=== PATIENT | female | born 1995 | race Caucasian/White ===

== ENCOUNTER 2017-09-23 13:50 | Day surgery (SDC) | payer BC ==
[~2017-09-23] VITALS: Ht 188 cm; Wt 163.3 kg
--- OUTSIDE RECORDS SUMMARY | 2017-09-23 13:56 | XMS REPORT | Clinical Summary ---
Author Author [facility] Organization [facility] Address Unknown Phone Unavailable Care Team Providers Care Victim Witness Administrator Name Role Phone PCP Unavailable Source Comments Some departments are not documenting in the electronic medical record. If you do not see the information that you expected, contact Release of Information in the Health Information Management department at [phone] for further assistance in locating additional records.[facility] Allergies No Known Allergies Current Medications Prescription Sig. Disp. Refills Start End Date Status Date atenolol (TENORMIN) 25 mg Take 25 mg by mouth Active tablet daily. Active Problems Not on file Family History Medical History Relation Name Comments Heart defect Paternal Grandfather Sudden Cardiac Paternal Grandfather Heart defect Paternal A-Fib Grandmother Relation Name Status Comments Paternal Grandfather Paternal Grandmother Social History Tobacco Use Types Packs/Day Years Used Date Never Smoker Sex Assigned at Date Recorded Not on file Last Filed Vital Signs Vital Sign Reading Time Taken Blood Pressure 143/73 05/13/2013 8:39 AM CDT Pulse 75 05/13/2013 8:31 AM CDT Temperature - - Respiratory Rate 24 05/13/2013 8:31 AM CDT Oxygen Saturation 99% 05/13/2013 8:31 AM CDT Inhaled Oxygen - - Concentration Weight 133.3 kg (293 lb 14 oz) 05/13/2013 8:31 AM CDT Height 183.5 cm (6' 0.24") 05/13/2013 8:31 AM CDT Body Mass Index 39.59 05/13/2013 8:31 AM CDT Plan of Treatment Health Maintenance Due Date Last Done Comments PHYSICAL (COMPREHENSIVE) 2003 EXAM HPV VACCINES (1 of 3 - 2007 Female 3 Dose Series) PERTUSSIS VACCINE 2007 TETANUS VACCINE 2013 INFLUENZA VACCINE 05/20/2017 CERVICAL CANCER SCREENING 2017 Results Not on filefrom Last 3 Months
[2017-09-23 14:30] VITALS: BP 144/92
[2017-09-23] MEDS: LACTATED RINGERS 1,000 ML IV PRN ×2 (14:30→15:51)
[2017-09-23] MEDS ORDERED: ONDANSETRON 4 MG/2 ML (SDV) Z0FRAN ONE (14:36)
[2017-09-23] MEDS ORDERED: LIDOCAINE 1% INJ 20 ML (XYLOCAINE) VIAL ONE (14:37)
[2017-09-23] MEDS ORDERED: BUPIVACAINE 0.5% 30 ML (SENSORCAINE) VIAL ONE (14:37)
[2017-09-23] MEDS ORDERED: BIRTH CONTROL PO ×2 (14:51)
[2017-09-23] MEDS ORDERED: ROCURONIUM 50 MG/5 ML (ZEMURON) VIAL IV ONE ×2 (14:52→15:43)
[2017-09-23] MEDS ORDERED: proPOfol 200 MG/20 ML (DIPRIVAN) VIAL IV ONE (14:52)
[2017-09-23] MEDS ORDERED: MIDAZOLAM 2 MG/2 ML (VERSED) VIAL ONE (14:52)
[2017-09-23] MEDS ORDERED: fentaNYL INJECTION 250 MCG/5 ML AMP ONE (14:53)
[2017-09-23] MEDS ORDERED: ONDANSETRON 4 MG/2 ML (SDV) Z0FRAN IV ONE (15:00)
[2017-09-23] MEDS ORDERED: ceFAZolin 2 GM/NS 50 ML IV ONE (15:00)
[2017-09-23] MEDS ORDERED: DEXAMETHASONE 10 MG/ML (DECADRON) 1 ML VIAL ONE (16:05)
[2017-09-23] MEDS ORDERED: KETOROLAC 30 MG/ML VIAL ONE (16:05)
[2017-09-23] MEDS ORDERED: morphine INJ 10 MG/ML 1ML (SYR OR VIAL) ONE (16:11)
[2017-09-23] MEDS ORDERED: NEOSTIGMINE (BLOXIVERZ ) 1 MG/1ML 10 ML VIAL ONE (16:55)
[2017-09-23] MEDS ORDERED: GLYCOPYRROLATE 0.2 MG/ML (ROBINUL) 2 ML VIAL ONE (16:55)
[2017-09-23] MEDS ORDERED: SEVOFLURANE (ULTANE) 15 ML INHAL SOLN ONE (16:55)
--- NOTE | 2017-09-23 17:01 | Progress Note-Post Operative ---
Post-Operative Progess Note Surgeon (s)/Program Eligibility Specialist (s) Surgeon LIZZIE ANTONIO DO Program Eligibility Specialist: Dr. Dubose Pre-Operative Diagnosis SYMPTOMATIC CHOLETHIASIS Post-Operative Diagnosis cholelithiasis, cholecystitis, distal cbd obstruction Procedure & Operative Findings Date of Procedure 09/23/17 Procedure Performed/Findings lap seb c ioc Anesthesia Type general Estimated Blood Loss Estimated blood loss (mL): minimal Specimens/Packing Specimens Removed gallbladder LIZZIE ANTONIO DO Sep 23, 2017 17:01
[2017-09-23] MEDS ORDERED: HYDR-3812 PO ×2 (17:02)
--- NOTE | 2017-09-23 17:07 | Discharge Inst-Simple/Standard ---
Discharge Inst-Standard Discharge Medications New, Converted or Re-Newed RX: RX on Chart Patient Instructions/Follow Up Plan of Care/Instructions/FU: [address] Mckenzie NPO until allowed diet after scope procedure. Activity as Tolerated: No Discharge Diet: Other Diet (nothing to eat or drink until after scope perfored (ERCP)) Other Inst to Patient Follow up Appt: Make appointment for 2 weeks. Instructions: No lifting greater than 10 pounds. No strenuous activity. May shower in 24 hours, no tub bath or soaking. Use incentive spirometer at home as directed. No Smoking Skin/Wound Care: May remove bandages in 24 hours. You need to leave the white strips over incision on they will fall off on their own. Symptoms to Report: Appetite Changes, Extremity Discoloration, Numbness/Tingling, Swelling Increased , Bleeding Excessive, Eyesight Changes, Pain Increased, Urine Color Change, Constipation(Persistent), Fever over 101 degree F, Pain/Pressure in chest, Urinating Difficulty, Cough Up/Vomit Blood, Heart Beat Irreg/Pounding, Pain/ Pressure in jaw, Vaginal Bleeding Increase, Cramps in feet or legs, Lightheadedness, Pain/Pressure in shoulder, Diarrhea(Persistent), Memory Changes Suddenly, Questions/Concerns, Weight gain consecutive days, Dizziness/ Fainting, Nausea/Vomiting, Shortness of Breath, Weight gain over 2 pounds. If eyes or skin turn yellow notify physician. If questions or concerns contact your physician Or seek help at emergency department. LIZZIE MCKENZIE DO Sep 23, 2017 17:07
[2017-09-23] MEDS: morphine INJ 10 MG/ML 1ML (SYR OR VIAL) IVP PRN ×2 (17:08→17:15)
[2017-09-23] MEDS ORDERED: PROMETHAZINE INJ 25 MG/ML (PHENERGAN) AMP IVP PRN (17:15)
[2017-09-23] MEDS ORDERED: ONDANSETRON 4 MG/2 ML (SDV) Z0FRAN IVP PRN ×2 (17:15→18:45)
[2017-09-23] MEDS ORDERED: HYDROmorphone (DILAUDID) 2 MG/ML VIAL IVP PRN (17:15)
[2017-09-23] MEDS ORDERED: KETOROLAC 30 MG/ML VIAL IVP ONE (17:15)
[2017-09-23 17:50] VITALS: BP 156/85
[2017-09-23 18:15] VITALS: BP 146/90
[2017-09-23 18:30] VITALS: BP 140/84
[2017-09-23] MEDS ORDERED: CATHETER FLUSH 10 ML SYR IV PRN (19:00)
--- NOTE | 2017-09-23 19:01 | Diagnostic Imaging Report ---
INDICATION: Laparoscopic cholecystectomy Operative cholangiogram performed in a routine fashion. Limited views demonstrate contrast in the common duct without definitive passage of contrast to the small bowel. There appears to be a filling defect in distal common bile duct suspicious for stone. Consider correlation with ERCP as clinically warranted. 32 seconds of fluoroscopy time was used in surgery. IMPRESSION: Intraoperative cholangiography demonstrates findings suspicious for distal common duct stone. Consider ERCP or MRCP as clinically warranted. Dictated by: Dictated on workstation # [id number]
[2017-09-23] MEDS: LACTATED RINGERS 1,000 ML IV SCH (19:03)
[2017-09-23] MEDS: morphine INJ 4 MG/ML 1 ML (VIAL/SYRINGE) IVP PRN (19:04)
[2017-09-23 20:00] VITALS: BP 145/83
[2017-09-23] MEDS: PROMETHAZINE INJ 25 MG/ML (PHENERGAN) AMP IVP PRN (20:45)
--- NOTE | 2017-09-23 23:33 | OPERATIVE REPORT ---
DATE OF SERVICE: 09/23/2017 PREOPERATIVE DIAGNOSIS: Symptomatic cholelithiasis. POSTOPERATIVE DIAGNOSES: Cholelithiasis, cholecystitis, common bile duct distal obstruction. PROCEDURE: Laparoscopic cholecystectomy with intraoperative cholangiogram. SURGEON: Lizzie Mckenzie DO. [employer] FIELD AGENT: Dr. Dubose, assisted in retraction, dissection and closure. ANESTHESIA: General. ESTIMATED BLOOD LOSS: Minimal. COMPLICATIONS: None. INDICATIONS: The patient is a 22-year-old female, who presented with right upper quadrant abdominal pain. She had a gallbladder demonstrating cholelithiasis. She had elevated liver enzymes and total bilirubin. She was discussed risks and benefits of laparoscopic cholecystectomy with intraoperative cholangiogram. She understands risks and benefits and wished to proceed. Consent was signed and on the chart. DESCRIPTION OF PROCEDURE: The patient was taken to the operating suite. She was prepped and draped in sterile fashion. Surgical pause was performed. A 12 mm incision was made just superior to the umbilicus. Dissection was taken down with cautery down to the fascia, which was then scored and elevated and the abdomen was then entered. A balloon trocar was inserted in the abdomen and pneumoperitoneum was achieved. Under direct visualization of the laparoscope, a 5 mm trocar was placed in the subxiphoid region and two 5 mm trocars were placed in the right upper quadrant. The gallbladder was distended and erythematous. It was grasped and elevated. The cystic artery was able to be dissected around. Clips were placed on the proximal and distal portion and this was transected. The cystic artery was continued to be dissected around. It was dilated. It was dissected around. A clip was placed on the distal portion of the cystic duct. The duct was then partially transected and clear fluid erupted. The Arrow catheter was inserted and the clip had to be used to hold in place. Cholangiogram was then performed. There were filling defects and contrast did not make its way into the duodenum consistent with distal common bile duct obstruction. The catheter was removed. Two small stones did come out of the cystic duct. The duct was then completely transected and an Endoloop PDS was used to close the duct. Hook cautery was used to dissect the gallbladder from the gallbladder fossa achieving hemostasis. Once it was removed, it was placed in an Endobag and removed through the 12 mm trocar site. Copious amounts of irrigation were used to irrigate the abdomen. Hemostasis had been achieved. The 12 mm fascial defect was closed with 0 Vicryl in a [id number] fashion. This was done after the trocars were removed and the abdomen was desufflated. The skin was then closed using 4-0 Monocryl in a subcuticular fashion. After this, the skin was closed. The skin was washed and dried and Dermabond was placed over the incisions. The patient tolerated procedure well without any complications. She was taken to recovery room in stable condition. RECOMMENDATIONS: The patient will need ERCP, which will be arranged. Job ID: [id number] DocumentID: [id number] Dictated Date: 09/23/2017 19:17:38 Machine Tailer Date: 09/23/2017 23:32:15 Dictated By: LIZZIE MCKENZIE DO
[2017-09-24] VITALS: BP 137/72
[2017-09-24] MEDS: LACTATED RINGERS 1,000 ML IV SCH ×2 (03:12→10:45)
[2017-09-24 04:00] VITALS: BP 135/63
[2017-09-24] MEDS: morphine INJ 4 MG/ML 1 ML (VIAL/SYRINGE) IVP PRN ×3 (05:49→13:55)
[2017-09-24 07:52] VITALS: BP 123/66
[2017-09-24 12:00] VITALS: BP 130/60
[2017-09-24] MEDS: PROMETHAZINE INJ 25 MG/ML (PHENERGAN) AMP IVP PRN (14:03)
--- NOTE | 2017-09-24 14:27 | Anesthesia-General Post-Op ---
General Patient Condition Mental Status/LOC: Same as Preop Cardiovascular: Satisfactory Nausea/Vomiting: Absent Respiratory: Satisfactory Pain: Controlled Complications: Absent Post Op Complications Complications None Follow Up Care/Instructions Patient Instructions None needed. Anesthesia/Patient Condition Patient Condition Patient is doing well, no complaints, stable vital signs, no apparent adverse anesthesia problems. No complications reported per nursing. CAROLINE PARKER CRNA Sep 24, 2017 14:27
[2017-09-24 15:00] VITALS: BP 130/60
--- NOTE | 2017-09-24 17:06 | Progress Note ---
Subjective Date Seen by Provider: Sep 24, 2017 Time Seen by Provider: 08:30 Subjective/Events-last exam Doing well. Tolerating liquids. Pain controlled. No nausea vomiting fever sweats chills or shortness of breath at this time. To have ERCP today in [place]. Objective Exam Vital Signs Date Time Temp Pulse Resp B/P (MAP) Pulse Ox O2 Delivery O2 Flow Rate FiO2 09/24/17 15:00 97 20 130/60 95 Room Air 09/24/17 12:00 99.2 97 20 130/60 (83) 95 Room Air 09/24/17 07:52 98.2 97 20 123/66 (85) 98 Room Air 09/24/17 04:00 96.8 92 12 135/63 (87) 93 Room Air 09/24/17 00:00 97.4 104 20 137/72 (93) 93 Room Air 09/23/17 20:00 98.1 94 20 145/83 (103) 98 Room Air 09/23/17 19:30 Room Air 09/23/17 18:30 98.6 85 20 140/84 (102) 98 Room Air 09/23/17 18:15 96.1 86 18 146/90 97 Room Air 09/23/17 17:50 96.2 75 18 156/85 97 Room Air I & O 09/24/17 07:00 Intake Total 5328 ml Output Total 2700 ml Balance 2628 ml Capillary Refill : General Appearance: No Apparent Distress HEENT: PERRL/EOMI Neck: Supple Respiratory: No Accessory Muscle Use, No Respiratory Distress Cardiovascular: Regular Rate, Rhythm Gastrointestinal: soft (incisional tenderness, no signs of infection) Extremity: Normal Inspection Neurologic/Psychiatric: Alert, Oriented x3 Skin: Normal Color Results Lab Microbiology 09/23/17 MRSA Screen - Final, Complete MRSA not isolated Assessment/Plan Assessment/Plan Assessment/Plan s/p lap seb c ioc distal cbd obstruction dc to have ERCP in [place], arranged with Dr. Armendariz. Final Diagnosis cholelithiasis s/p laparoscopic cholecystectomy with IOC distal cbd obstruction Clinical Quality Measures DVT/VTE Risk/Contraindication: Risk Factor Score Per Nursin RFS Level Per Nursing on Admit: 1=Low/No VTE PPX LIZZIE ANTONIO DO Sep 24, 2017 17:06
== END 2017-09-24 15:00 | disposition short-term general hospital (02) ==
LOC: SDC 13:50 → 4TH 18:34 → SDC 09-24 15:00
PROVIDERS: ATTEND Surgery
DX: K80.10 Calculus of gallbladder with chronic cholecystitis without obstruction (principal); Z88.5 Allergy status to narcotic agent
CPT/HCPCS: 84703; 87081

== ENCOUNTER → 2017-09-23 | Outpatient (CLI) | payer BC ==
[~2017-09-23] MED LIST: BIRTH CONTROL PO; HYDR-3812 PO
[2017-09-23 12:46] LABS: ALANINE AMINOTRANSFERASE 210 U/L (0-55); ALBUMIN 3.8 GM/DL (3.2-4.5); ANION GAP 9 MMOL/L (5-14); ASPARTATE AMINO TRANSFERASE 184 U/L (5-34); BILIRUBIN,TOTAL 3.4 MG/DL (0.1-1.0); BLOOD UREA NITROGEN 7 MG/DL (7-18); BUN/CREATININE RATIO 10; CALCIUM 9.3 MG/DL (8.5-10.1); CARBON DIOXIDE 27 MMOL/L (21-32); CHLORIDE 104 MMOL/L (98-107); CREATININE SERUM 0.71 MG/DL (0.60-1.30); GFR ESTIMATED > 60; GLUCOSE 90 MG/DL (70-105); POTASSIUM 3.9 MMOL/L (3.6-5.0); SODIUM 140 MMOL/L (135-145); TOTAL PROTEIN 7.8 GM/DL (6.4-8.2)
--- NOTE | 2017-09-23 13:31 | Diagnostic Imaging Report ---
PROCEDURE: US Gallbladder. TECHNIQUE: Multiple real-time grayscale images were obtained over the right upper quadrant in various projections. INDICATION: Right upper quadrant abdominal pain Liver measures 19 cm in length without evidence of focal hepatic lesion or biliary ductal dilatation. There are small shadowing calculi present within the gallbladder lumen without evidence of gallbladder wall thickening or pericholecystic fluid. Common hepatic duct reaches 0.8 cm in diameter. There is no evidence of abnormality in the adjacent right kidney or partially visualized pancreas. No free fluid was noted. IMPRESSION: Cholecystolithiasis and mild extrahepatic biliary ductal dilatation. This could be on the basis of previous stone passage and clinical correlation is recommended. If further evaluation is warranted, consideration could be given to hepatobiliary scan. Report was called to Dr. Ortiz by mars at 1:31 pm. Dictated by: Dictated on workstation # [id number]
== END ==
LOC: RAD 11:51
PROVIDERS: ATTEND Family Medicine
DX: K80.20 Calculus of gallbladder without cholecystitis without obstruction (principal); K83.8 Other specified diseases of biliary tract
CPT/HCPCS: 36415; 76705; 80053

== ENCOUNTER → 2018-10-12 | Outpatient (CLI) | payer BC ==
[~2018-10-12] MED LIST changes: +ACHD5005 PO; -HYDR-3812 PO
--- NOTE | 2018-10-12 12:34 | Diagnostic Imaging Report ---
Indication: Palpable lump in the right breast. Sonographic interrogation of the area of palpable abnormality at the 3 o'clock location of the right breast was performed. This is approximately 4 cm from the nipple. No sonographic abnormality is seen at this location. No solid or cystic mass is detected. Impression: BI-RADS category 1 No sonographic abnormality is seen. Continued close clinical and self breast exam is recommended to confirm stability of the palpable abnormality. Dictated by: Dictated on workstation # [id number]
== END ==
LOC: RAD 10:35
PROVIDERS: ATTEND Family Medicine
DX: N63.10 Unspecified lump in the right breast, unspecified quadrant (principal)